=== PATIENT | male | born 1980 | race Caucasian/White ===

== ENCOUNTER 2018-03-10 11:18 | Emergency (ER) | payer OTHER ==
[~2018-03-10] VITALS: Ht 182.9 cm; Wt 99.8 kg
[~2018-03-10 11:18] MED LIST: AMOX TR-K CLV1 EAC1 PO; IBUPROFEN800 MG PO; OXYCODONE-ACET1 EAC1 PO; SULFAMETHOXAZO1 EAC1 PO
[2018-03-10] MEDS ORDERED: CYCLOBENZAPRINE5 MG PO (13:00)
[2018-03-10] MEDS ORDERED: NORCO 10-325 T1 EACH PO (13:00)
[2018-03-10] MEDS ORDERED: NAPROSYN500 MG PO (13:00)
[2018-03-10] MEDS ORDERED: PEPCID20 MG PO (13:00)
== END 2018-03-10 13:26 | disposition home or self-care (01) ==
LOC: ED 11:18
DX: S22.42XA Multiple fractures of ribs, left side, initial encounter for closed fracture (principal); W01.198A Fall on same level from slipping, tripping and stumbling with subsequent striking against other object, initial encounter; F17.200 Nicotine dependence, unspecified, uncomplicated
CPT/HCPCS: 71046; 71100; 99283

== ENCOUNTER 2024-06-27 10:47 | Emergency (ER) | payer OTHER ==
[~2024-06-27] VITALS: Ht 182.9 cm; Wt 122.0 kg
[~2024-06-27 10:47] MED LIST changes: +CEPHALEXIN500 M1 PO; +CYCLOBENZAPRINE5 MG PO; +DOXYCYCLINE HY100 MG PO; +NAPROSYN500 MG PO; +NORCO 10-325 T1 EACH PO; +OMEPRAZOLE40 MG PO; +PEPCID20 MG PO; +PROZAC10 MG PO
[2024-06-27] MEDS ORDERED: CYCLOBENZAPRINE10 MG PO (11:34)
[2024-06-27] MEDS ORDERED: HYDROCODON-ACE1 EA10 PO (11:34)
[2024-06-27] MEDS ORDERED: [UNRECOGNIZED DRUG - OTHER] TD (11:34)
[2024-06-27] MEDS ORDERED: ALEVE ARTHRITI100 GM TD (11:34)
[2024-06-27 11:45] VITALS: BP 161/118
[2024-06-27] MEDS ORDERED: CYCLOBENZAPRINE HCL 10 MG TAB PO ONE (11:45)
[2024-06-27] MEDS ORDERED: LIDOCAINE HCL 4% 1 EACH PATCH TD ONE (11:45)
[2024-06-27] MEDS ORDERED: LIDOCAINE PATCH REMOVAL 1 EA TD SCH (21:00)
== END 2024-06-27 11:45 | disposition home or self-care (01) ==
LOC: ED 10:47
DX: M54.89 Other dorsalgia (principal); K21.9 Gastro-esophageal reflux disease without esophagitis; F17.200 Nicotine dependence, unspecified, uncomplicated; Z91.040 Latex allergy status; Z91.018 Allergy to other foods; Z79.899 Other long term (current) drug therapy; W19.XXXA Unspecified fall, initial encounter
CPT/HCPCS: 99283; A9270

== ENCOUNTER 2025-01-03 10:59 | Emergency (ER) | payer OTHER ==
[~2025-01-03] VITALS: Ht 182.9 cm; Wt 147.2 kg
[~2025-01-03 10:59] MED LIST changes: +ALEVE ARTHRITI100 GM TD; +CYCLOBENZAPRINE10 MG PO; +HYDROCODON-ACE1 EA10 PO; +[UNRECOGNIZED DRUG - OTHER] TD
[2025-01-03] MEDS ORDERED: DAYTIME COLD &237 ML PO (11:10)
[2025-01-03] MEDS ORDERED: ADVIL200 MG PO (11:11)
[2025-01-03] MEDS ORDERED: ACETAMINOPHEN500 M1 PO (11:11)
[2025-01-03 13:10] LABS: BASOPHILS 0.8 % (0-2); EOSINOPHILS 0.3 % (0-6); HEMATOCRIT 47.5 % (35.0-50.0); HEMOGLOBIN 16.5 g/dL (12.0-18.0); LYMPHOCYTES 10.4 % (24-44); MCH 33.4 (27-36); MCHC 34.6 g/dl (30-36); MCV 96.5 fl (81-99); NEUTROPHILS 80.5 % (39-80); PLATELET COUNT 170 K/uL (140-440); RBC 4.92 M/ul (4.3-5.7); RDW 14.9 (10.5-15.0)
[2025-01-03 13:31] LABS: ALBUMIN 3.7 g/dL (3.4-5.0); ALBUMIN/GLOBULIN RATIO 0.86 (1.1-2.4); ANION GAP 13.9 (7-21); BILIRUBIN, TOTAL 0.6 mg/dL (0.2-1.0); BUN/CREATININE RATIO 12.08 (6.0-28.6); CALCIUM 9.4 mg/dL (8.5-10.1); CREATININE, SERUM 0.91 mg/dL (0.70-1.30); POTASSIUM 3.9 mmol/L (3.5-5.1)
[2025-01-03] MEDS ORDERED: HYDROCHLOROTHIA25 MG PO (14:57)
[2025-01-03 15:20] VITALS: BP 164/114
--- NOTE | 2025-01-04 14:52 | EKG ---
[facility] [address] [place], [place] [address] Signed Normal sinus rhythm Right atrial enlargement Borderline ECG No previous ECGs available Confirmed by Srinath Amado MD ([id number]) on 01/04/2025 2:52:35 PM Electronically Signed By: SRINATH AMADO MD 01/04/25 145 PATIENT NAME: BREANNA HAMILTON NIDA Electrocardiogram DATE OF : 76 PHYSICIAN: SRINATH AMADO MD REPORT #: [id number] REPORT IS CONFIDENTIAL AND NOT TO BE RELEASED WITHOUT AUTHORIZATION
== END 2025-01-03 15:29 | disposition home or self-care (01) ==
LOC: ED 10:59
PROVIDERS: Emergency Medicine
DX: J18.9 Pneumonia, unspecified organism (principal); K21.9 Gastro-esophageal reflux disease without esophagitis; F17.200 Nicotine dependence, unspecified, uncomplicated; Z79.899 Other long term (current) drug therapy; Z91.018 Allergy to other foods; Z91.040 Latex allergy status
CPT/HCPCS: 36415; 71045; 80053; 83880; 84484; 85025; 87651; 93005; 93010; 99284-25

== ENCOUNTER 2025-01-08 15:44 | Emergency (ER) | payer OTHER ==
[~2025-01-08] VITALS: Ht 182.9 cm; Wt 143.5 kg
[~2025-01-08 15:44] MED LIST changes: +ACETAMINOPHEN500 M1 PO; +ADVIL200 MG PO; +DAYTIME COLD &237 ML PO; +HYDROCHLOROTHIA25 MG PO
--- OUTSIDE RECORDS SUMMARY | 2025-01-08 15:51 | XMS ---
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 [facility] has no Care Guidelines for this patient. [place] VISIT COUNT (12 MO.) 3 [facility] [place] [facility] TOTAL 3 NOTE: Visits indicate total known visits. ED/[facility] VISIT TRACKING (12 MO.) 01/08/2025 15:45 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
[2025-01-08] MEDS ORDERED: AZITHROMYCIN250 MG PO (16:58)
[2025-01-08] MEDS ORDERED: THERAFLU SEVER1 EAC3 PO (16:59)
[2025-01-08] MEDS ORDERED: DEXAMETHASONE SOD PHOS 10 MG/ML VIAL IM ONE (19:45)
[2025-01-08] MEDS ORDERED: ALBUTEROL/IPRATROPIUM 3 ML NEB INH ONE (19:45)
[2025-01-08] MEDS ORDERED: LISINOPRIL20 MG PO (20:12)
[2025-01-08] MEDS ORDERED: lisinopriL 20 MG TAB PO ONE (20:15)
[2025-01-08] MEDS ORDERED: ALBUTEROL SULFATE 8 GM HOME.PACK INH ONE (20:15)
[2025-01-08] MEDS ORDERED: PREDNISONE20 MG PO (20:15)
[2025-01-08 21:27] VITALS: BP 228/137
== END 2025-01-08 21:20 | disposition home or self-care (01) ==
LOC: ED 15:44
DX: J40 Bronchitis, not specified as acute or chronic (principal); I10 Essential (primary) hypertension; F17.200 Nicotine dependence, unspecified, uncomplicated; Z91.040 Latex allergy status; Z91.018 Allergy to other foods; Z79.899 Other long term (current) drug therapy
CPT/HCPCS: 71045; 94640; 94664; 96372; 99283-25; 99406; J1100

== ENCOUNTER 2025-04-23 17:11 | Emergency (ER) | payer OTHER ==
[~2025-04-23] VITALS: Ht 182.9 cm; Wt 146.2 kg
[~2025-04-23 17:11] MED LIST changes: +AZITHROMYCIN250 MG PO; +LISINOPRIL20 MG PO; +PREDNISONE20 MG PO; +THERAFLU SEVER1 EAC3 PO
[2025-04-23] MEDS ORDERED: DIPHTH,PERTUSS(ACELL),TET VAC 0.5 ML SYRINGE IM ONE (20:45)
[2025-04-23 21:22] LABS: ALT (SGPT) 124.0 U/L (14-59); AST (SGOT) 61.0 U/L (15-37); GLOMERULAR FILTRATION RATE,EST 84.0 mL/min (>60); PROTEIN, TOTAL 7.7 g/dL (6.4-8.2); UREA NITROGEN 11.0 mg/dL (7-18)
[2025-04-23 21:35] LABS: BASOPHILS 0.4 % (0.2-1.2); EOSINOPHILS 0.3 % (0.8-7.0); LYMPHOCYTES 13.6 % (21.8-53.1); MCH 34.2 PG (25.7-32.2); MCHC 34.6 g/dL (32.3-36.5); MCV 98.8 fL (79.0-92.2); MONOCYTES 6.0 % (5.3-12.2); NEUTROPHILS 79.1 % (34.0-67.9); RBC 4.33 M/uL (4.63-6.08)
[2025-04-23] MEDS ORDERED: DAPTOmycin 500 MG/10 ML VIAL IV ONE (21:45)
[2025-04-23] MEDS ORDERED: DOXYCYCLINE HYCLATE 100 MG HOME.PACK PO ONE (22:15)
[2025-04-23 22:47] VITALS: BP 153/98
== END 2025-04-23 22:48 | disposition home or self-care (01) ==
LOC: ED 17:11
PROVIDERS: Emergency Medicine
DX: L03.115 Cellulitis of right lower limb (principal); F17.200 Nicotine dependence, unspecified, uncomplicated; Z91.018 Allergy to other foods; Z91.040 Latex allergy status; Z79.899 Other long term (current) drug therapy
CPT/HCPCS: 36415; 80053; 85025; 90471; 90715; 96374; 99283-25; A9270; J0878

== ENCOUNTER 2025-05-01 17:53 | Emergency (ER) | payer OTHER ==
[~2025-05-01] VITALS: Ht 182.9 cm; Wt 148.1 kg
--- OUTSIDE RECORDS SUMMARY | 2025-05-01 18:01 | XMS ---
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 [facility] has no Care Guidelines for this patient. [place] VISIT COUNT (12 MO.) 5 [facility] [place] [facility] TOTAL 5 NOTE: Visits indicate total known visits. ED/C VISIT TRACKING (12 MO.) 05/01/2025 17:54 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 01/08/2025 15:45 [facility] [place] TYPE: Emergency COMPLAINT: - TROUBLE BREATHING DIAGNOSES: - Allergy to other foods - Bronchitis, not specified as acute or chronic - Essential (primary) hypertension - Latex allergy status - Nasal congestion - Nicotine dependence, unspecified, uncomplicated - Other termite treater (current) drug 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 01/03/2025 10:59 [facility] [place] TYPE: Emergency COMPLAINT: - COLD SYMTPOMS DIAGNOSES: - Acute upper respiratory infection, unspecified - Allergy to other foods - Gastro-esophageal reflux disease without esophagitis - Latex allergy status - Nicotine dependence, unspecified, uncomplicated - Other residential (current) drug therapy - Pneumonia, unspecified organism 06/27/2024 10:48 [facility] [place] TYPE: Emergency COMPLAINT: - FALL/BACK PAIN DIAGNOSES: - Allergy to other foods - Dorsalgia, unspecified - Gastro-esophageal reflux disease without esophagitis - Latex allergy status - Nicotine dependence, unspecified, uncomplicated - Other dorsalgia - Other residential (current) drug therapy - Unspecified fall, initial encounter INPATIENT VISIT TRACKING (12 MO.) No inpatient visits to display in this time frame [email or web address]
[2025-05-01 19:35] LABS: BASOPHILS 0.8 % (0.2-1.2); EOSINOPHILS 0.9 % (0.8-7.0); LYMPHOCYTES 28.2 % (21.8-53.1); MCH 33.0 PG (25.7-32.2); MCHC 33.8 g/dL (32.3-36.5); MCV 97.8 fL (79.0-92.2); MONOCYTES 7.2 % (5.3-12.2); NEUTROPHILS 62.0 % (34.0-67.9); RBC 4.51 M/uL (4.63-6.08)
[2025-05-01 20:01] LABS: ALT (SGPT) 112.0 U/L (14-59); AST (SGOT) 81.0 U/L (15-37); GLOMERULAR FILTRATION RATE,EST 112.0 mL/min (>60); PROTEIN, TOTAL 7.5 g/dL (6.4-8.2); TSH, 3RD GENERATION 1.804 uIU/mL (0.358-3.740); UREA NITROGEN 12.0 mg/dL (7-18)
[2025-05-01] MEDS ORDERED: FUROSEMIDE 40 MG TAB PO ONE (20:30)
[2025-05-01] MEDS ORDERED: POTASSIUM CHLORIDE 10 MEQ TABCR PO ONE (20:30)
[2025-05-01] MEDS ORDERED: LISINOPRIL10 MG PO (20:32)
[2025-05-01] MEDS ORDERED: LASIX40 MG PO (20:33)
[2025-05-01] MEDS ORDERED: KLOR-CON M2020 MEQ PO (20:33)
[2025-05-01 20:46] VITALS: BP 185/119
[2025-05-01 20:49] LABS: ERYTHROCYTE SEDIMENTATION RATE 5
== END 2025-05-01 20:45 | disposition home or self-care (01) ==
LOC: ED 17:53
PROVIDERS: Internal Medicine
DX: R60.0 Localized edema (principal); I10 Essential (primary) hypertension; F17.200 Nicotine dependence, unspecified, uncomplicated; Z91.018 Allergy to other foods; Z91.040 Latex allergy status; Z79.899 Other long term (current) drug therapy; Z79.52 Long term (current) use of systemic steroids
CPT/HCPCS: 36415; 71045; 80053; 83880; 84443; 85025; 85379; 85651; 86140; 93971; 99284-25; A9270; G0480

== ENCOUNTER 2025-08-23 05:52 | Day surgery (SDC) | payer OTHER ==
[~2025-08-23] VITALS: Ht 182.9 cm; Wt 145.0 kg
[~2025-08-23 05:52] MED LIST changes: +ANTIFUNGAL113 GM TOP; +KLOR-CON M2020 MEQ PO; +LACTATED RINGER'S 1,000 ML IV SCH; +LASIX40 MG PO; +LISINOPRIL-HCT1 EAC1 PO; +LISINOPRIL10 MG PO; +NALTREXONE HCL50 MG PO; +TRIAMCINOLONE A15 G1 TOP
[2025-08-23 06:04] VITALS: BP 145/100
[2025-08-23 06:55] LABS: INR 1.07 (0.80-1.30); PROTIME 13.5 Sec (11.2-14.2)
[2025-08-23] MEDS ORDERED: IBLOOD GLUCOSE TEST STRIP 1 EA TEST VI PRN (07:00)
[2025-08-23] MEDS ORDERED: LIDOCAINE HCL 1% 5 ML SDV INJ ONE (07:00)
[2025-08-23] MEDS ORDERED: LIDOCAINE HCL 2% 5 ML SDV ONE (07:22)
[2025-08-23] MEDS ORDERED: fentaNYL citrate 100 MCG/2 ML VIAL ONE (07:32)
[2025-08-23] MEDS ORDERED: LIDOCAINE 2% VISCOUS 6 ML SYR TOP ONE (08:45)
--- NOTE | 2025-08-23 08:48 | NUR ---
08/23/25 0848 Marisa Schilling 0815-PT ARRIVES TO PACU, VIA STRETCHER, RESTING ON LT SIDE, PT NOT RESPONSIVE TO NOXIOUS STIMULI, OPA IN PLACE, VSS ON 4L VIA NC IN MOUTH. 0820-PT AWAKENS ON OWN, OPA REMOVED AND TITRATED TO RA. PT EDUCATED AND ENCOURAGED TO PASS GAS, PT DENIES NAUSEA, BUT C/O PAIN AT RECTUM. VS REMAIN STABLE. 0830-PT C/O SEVERE RECTAL PAIN, UPDATED, VORB FOR LIDOCAINE JEL TO RECTUM, SEE EMAR.
[2025-08-23 09:01] VITALS: BP 111/96
== END 2025-08-23 09:15 | disposition home or self-care (01) ==
LOC: DS 05:52
PROVIDERS: ATTEND Surgery
PROC: 0DB68ZX Excision of Stomach, Via Natural or Artificial Opening Endoscopic, Diagnostic (ICD-10-PCS; 2025-08-23)
PROC: 0DBP8ZX Excision of Rectum, Via Natural or Artificial Opening Endoscopic, Diagnostic (ICD-10-PCS; principal; 2025-08-23 07:30)
PROC: 0DBN8ZX Excision of Sigmoid Colon, Via Natural or Artificial Opening Endoscopic, Diagnostic (ICD-10-PCS; 2025-08-23 07:30)
DX: K29.71 Gastritis, unspecified, with bleeding (principal); K31.7 Polyp of stomach and duodenum; K63.5 Polyp of colon; K64.8 Other hemorrhoids; K57.31 Diverticulosis of large intestine without perforation or abscess with bleeding; K62.89 Other specified diseases of anus and rectum; I10 Essential (primary) hypertension; K21.9 Gastro-esophageal reflux disease without esophagitis; F32.9 Major depressive disorder, single episode, unspecified; F17.210 Nicotine dependence, cigarettes, uncomplicated; F10.20 Alcohol dependence, uncomplicated; Z79.899 Other long term (current) drug therapy; Z80.0 Family history of malignant neoplasm of digestive organs
CPT/HCPCS: 00813; 36415; 85610; 88305; J2003; J2704; J3010; J7121